=== PATIENT | male | born 1945 | race Caucasian/White ===

== ENCOUNTER 2017-05-31 04:03 | Inpatient (IN) | payer MEDICARE, OTHER ==
[~2017-05-31] VITALS: Ht 175.3 cm; Wt 73.9 kg
--- NOTE | 2017-05-31 04:34 | NUR ---
PT JUDITH FROM HOME FOR "FEVER X2 DAYS; [facility]" PT AOX3 RR EVEN AND UNLABORED. NO SOB NOTED. NAD NOTED. NO NVD AT THIS TIME. PT NOT DIAPHORETIC. PT GOWNED AND PLACED ON MONITOR. DR MOJICA AT BEDSIDE FOR EVAL. CAREGIVER AT BEDSIDE
[2017-05-31] MEDS ORDERED: PIPERACILLIN /TAZOBACTAM 3.375 G in IV D5W 50 ML IV ONE (05:00)
[2017-05-31] MEDS ORDERED: VANCOMYCIN 1 GM in IV D5W 250 ML IV ONE (05:00)
[2017-05-31] MEDS ORDERED: ACETAMINOPHEN ES 500 MG TABLET PO ONE (05:00)
[2017-05-31] MEDS ORDERED: IV NS 0.9% 1,000 ML BAG IV ONE ×2 (05:00→07:00)
[2017-05-31 05:05] LABS: BASOPHILS % (AUTO) 0.3 % (0.0-2.0); EOSINOPHILS % (AUTO) 1.9 % (0.0-6.0); HEMATOCRIT 31 % (39-51); HEMOGLOBIN 10.4 g/dL (13.5-17.5); LYMPHOCYTES # (AUTO) 0.3 /CMM (0.8-4.8); MEAN CORPUSCULAR HEMOGLOBIN 30 PG (26.0-33.0); MEAN CORPUSCULAR HGB CONC 34 g/dl (31.0-36.0); MEAN CORPUSCULAR VOLUME 89 fL (80-96); MONOCYTES # (AUTO) 0.1 /CMM (0.1-1.30); MONOCYTES % (AUTO) 6.9 % (2.0-12.0); NEUTROPHILS # (AUTO) 1.6 /CMM (1.8-8.9); NEUTROPHILS % (AUTO) 75.9 % (43.0-81.0); PLATELET COUNT (AUTO) 131 /CMM (150-450); RDW COEFFICIENT OF VARIATION 14.3 (11.5-15.0); RED BLOOD CELL COUNT(AUTO) 3.45 MIL/uL (4.5-6.0); WHITE BLOOD COUNT (AUTO) 2.1 K/uL (4.3-11.0)
[2017-05-31] MEDS ORDERED: ACETAMINOPHEN ES 500 MG TABLET ONE (05:08)
[2017-05-31 05:15] LABS: CALCIUM, SERUM 7.7 mg/dL (8.5-10.1); CARBON DIOXIDE 27 mmol/L (21-32); CHLORIDE 101 mmol/L (98-107); CREATININE 0.6 mg/dL (0.6-1.3); GLUCOSE 97 mg/dL (74-106); POTASSIUM 4.2 mmol/L (3.5-5.1); SODIUM SERUM 135 mmol/L (136-145); UREA NITROGEN, BLOOD 9 mg/dL (7-18)
[2017-05-31 05:19] LABS: INR 0.96 (0.87-1.13)
[2017-05-31] MEDS ORDERED: LIDOCAINE 2% JEL UROJET 10 ML MM ONE ×2 (05:25→05:30)
[2017-05-31 05:26] LABS: TROPONIN I < 0.017 ng/mL (0.00-0.056)
--- NOTE | 2017-05-31 05:26 | NUR ---
RADIOLOGY AT BEDSIDE FOR CXR
[2017-05-31 05:28] LABS: ALANINE AMINOTRANSFERASE 24 U/L (12-78); ALBUMIN 2.2 g/dL (3.4-5.0); ALKALINE PHOSPHATASE 165 U/L (46-116); ASPARTATE AMINOTRANSFERASE 58 U/L (15-37); B-TYPE NATRIURETIC PEPTIDE 395 PG/ML (0-125); BILIRUBIN,DIRECT 0.1 mg/dL (0.0-0.2); BILIRUBIN,TOTAL 0.3 mg/dL (0.2-1.0); TOTAL PROTEIN, SERUM 5.4 g/dL (6.4-8.2)
--- NOTE | 2017-05-31 05:34 | NUR ---
UNABLE TO COLLECT UA VIA STRAIGHT CATH. INFORMED DR. MOJICA
[2017-05-31] MEDS ORDERED: PIPERACILLIN /TAZOBACTAM 3.375 G VIAL IV ONE (05:35)
--- NOTE | 2017-05-31 05:52 | NUR ---
MAYBE 255
--- NOTE | 2017-05-31 05:56 | NUR ---
PER DR MOJICA TO IV BOLUS NS WITH PRESSURE BAGS AT THIS TIME.
[2017-05-31] MEDS ORDERED: VANCOMYCIN 1 GM VIAL ONE (06:13)
--- NOTE | 2017-05-31 06:31 | NUR ---
DR. SHUKLA AWARE PT CURRENT BP.
--- NOTE | 2017-05-31 06:50 | NUR ---
DR. MOJICA AT BEDSIDE FOR EVAL.
[2017-05-31] MEDS ORDERED: ACETAMINOPHEN 325 MG TABLET PO PRN (07:00)
[2017-05-31] MEDS ORDERED: MAGNESIUM HYDROXIDE 30 ML UDC PO PRN (07:00)
[2017-05-31] MEDS ORDERED: MAG HYDROX/AL HYDROX/SIMETH 30 ML UDC PO PRN (07:00)
[2017-05-31] MEDS ORDERED: ZOLPIDEM TARTRATE 5 MG TABLET PO PRN (07:00)
[2017-05-31] MEDS ORDERED: ONDANSETRON HCL/PF 4 MG/2 ML VIAL IVP PRN (07:00)
[2017-05-31] MEDS ORDERED: Z GUARD REMEDY 2 OZ OINT TP PRN (07:00)
[2017-05-31] MEDS ORDERED: HYDROCODONE/APAP 5/325MG 1 EACH TABLET ONE (07:01)
[2017-05-31] MEDS ORDERED: HYDROCODONE/APAP 5/325MG 1 EACH TABLET PO STA (07:02)
--- NOTE | 2017-05-31 07:10 | NUR ---
REPORT GIVEN TO EDUAR LOYA FOR DORENE.
--- NOTE | 2017-05-31 07:36 | NUR ---
LEONELA LYON (PRIMARY OPERATIONS SECTION MANAGER) [phone]
[2017-05-31 09:00] VITALS: BP 92/61
[2017-05-31] MEDS ORDERED: PANT40TA4 PO (09:25)
[2017-05-31] MEDS ORDERED: TOLT4CAP PO (09:25)
[2017-05-31] MEDS ORDERED: METO-358 PO (09:25)
[2017-05-31] MEDS ORDERED: ONDA4TAB5 PO (09:25)
[2017-05-31] MEDS ORDERED: MORP15TA7 PO (09:25)
[2017-05-31] MEDS ORDERED: GABA-534 PO (09:25)
[2017-05-31] MEDS ORDERED: FEE PK DOSING 1 MIN EA MC ONE (09:26)
[2017-05-31 09:30] VITALS: BP 92/61
[2017-05-31] MEDS: ENOXAPARIN SODIUM 40 MG/0.4 ML DISP.SYRIN SQ SCH (11:08)
[2017-05-31] MEDS: PIPERACILLIN /TAZOBACTAM 3.375 G in IV D5W 50 ML IV SCH ×2 (12:43→17:02)
[2017-05-31] MEDS ORDERED: MORPHINE SULFATE SR 15 MG TABLET.SA PO SCH (15:00)
[2017-05-31] MEDS: MORPHINE SULFATE INJ 4 MG/ML DISP.SYRIN IV PRN (15:47)
[2017-05-31 15:50] VITALS: BP 89/57
[2017-05-31 16:00] VITALS: BP 99/62
[2017-05-31] MEDS: GABAPENTIN 300 MG CAPSULE PO SCH (16:28)
[2017-05-31] MEDS: CARBAMAZEPINE 200 MG TABLET PO SCH (16:28)
[2017-05-31] MEDS: DILTIAZEM HCL CD 180 MG PO SCH (16:33)
[2017-05-31] MEDS: VANCOMYCIN 1 GM in IV D5W 250 ML IV SCH (17:57)
[2017-05-31 20:00] VITALS: BP 100/68
--- NOTE | 2017-05-31 20:00 | NUR ---
ms/rn opening notes PATIENT ALERT, ORIENTED X3, ABLE TO VERBALIZE NEEDS, IV SITE LEFT FOREARM LEAKING TO BE REMOVES, ATTEND TO NEEDS, AM RN ENDORSE DORENE. PATIENT ON PAIN MANAGEMENT, MORPHINE SULFATE IR 15 MG PO TO BE FIVEN AT 2100, , WITH IV ATN AT 0000. WILL KEEP SKIN INTACT AND DRY, OBSERVE REDNESS ON BUTTOCKS, WILL APPLY ZGUARD FOR SKIN PROTECTION, RESPIRATION EVEN AND UNLABORED WILL CONTINUE TO MONITOR.
[2017-05-31] MEDS: MORPHINE SULFATE IR 15 MG TABLET PO SCH (21:15)
[2017-05-31] MEDS: HYDROCODONE/APAP 5/325MG 1 EACH TABLET PO PRN (23:12)
--- NOTE | 2017-05-31 23:15 | NUR ---
MS/RN NOTES PATIENT LEFT FOREARM IV LEAKING REMOVE, INSERTED BY CHARGE NURSE ONE TIME BUT UNSUCESFULL WITH 1ST ATTEMP, WILL CALL ICU NURSE TO HAVE IT REINSERTED.
[2017-06-01] VITALS: BP 96/70
[2017-06-01] MEDS: PIPERACILLIN /TAZOBACTAM 3.375 G in IV D5W 50 ML IV SCH ×4 (00:34→17:14)
[2017-06-01 04:00] VITALS: BP 103/74
[2017-06-01] MEDS: MORPHINE SULFATE IR 15 MG TABLET PO SCH ×3 (04:59→20:35)
[2017-06-01] MEDS: VANCOMYCIN 1 GM in IV D5W 250 ML IV SCH ×2 (05:41→17:15)
[2017-06-01] MEDS: HYDROCODONE/APAP 5/325MG 1 EACH TABLET PO PRN (06:58)
--- NOTE | 2017-06-01 07:00 | NUR ---
MS/RN NOTES PATIENT REQUESTED FOR NORCO 5-325 MG PO, BEFORE BLOOD DRAW.WILL MONITOR EFFECTIVENESS.
--- NOTE | 2017-06-01 07:10 | NUR ---
REPORT RECEIVED AT THE BEDSIDE. PATIENT IS RESTING COMFORTABLY IN BED. NO SOB OR DISTRESS NOTED AT THIS TIME. PATIENT DENIES PAIN AT THIS TIME. HEART RATE AFIB AT 95 ON THE MONITOR. BED IN A LOW POSITION, CALL LIGHT WITHIN PATIENT REACH. WILL CONTINUE TO MONITOR.
--- NOTE | 2017-06-01 07:36 | NUR ---
MS/RN NOTES PATIENT IN BED, AWAKE, ALERT X3, ABLE TO VERBALIZE NEEDS, ON PAIN MANAGEMENT MONITORING RESPIRATIONS EVEN AND UNLABORED, PHOTO OF BUE DONE, COOPERATIVE TO CARE, LEFT HAND GAUGE 20 IV W/O INFILTRATION WILL CONTINUE TO MONITOR AND ENDORSE AM RN.
[2017-06-01 08:00] VITALS: BP 95/67
[2017-06-01 08:11] LABS: BASOPHILS % (AUTO) 0.2 % (0.0-2.0); EOSINOPHILS # (AUTO) 0.1 /CMM (0.0-0.7); EOSINOPHILS % (AUTO) 3.7 % (0.0-6.0); HEMATOCRIT 27 % (39-51); HEMOGLOBIN 9.2 g/dL (13.5-17.5); LYMPHOCYTES # (AUTO) 0.4 /CMM (0.8-4.8); LYMPHOCYTES % (AUTO) 30.7 % (20.0-44.0); MEAN CORPUSCULAR HEMOGLOBIN 30 PG (26.0-33.0); MEAN CORPUSCULAR HGB CONC 34 g/dl (31.0-36.0); MEAN CORPUSCULAR VOLUME 89 fL (80-96); MONOCYTES # (AUTO) 0.1 /CMM (0.1-1.30); MONOCYTES % (AUTO) 9.1 % (2.0-12.0); NEUTROPHILS # (AUTO) 0.8 /CMM (1.8-8.9); NEUTROPHILS % (AUTO) 56.3 % (43.0-81.0); PLATELET COUNT (AUTO) 93 /CMM (150-450); RDW COEFFICIENT OF VARIATION 14.6 (11.5-15.0); RED BLOOD CELL COUNT(AUTO) 3.05 MIL/uL (4.5-6.0)
[2017-06-01 08:31] LABS: WHITE BLOOD COUNT (AUTO) 1.4 K/uL (4.3-11.0)
[2017-06-01 08:35] LABS: CALCIUM, SERUM 7.4 mg/dL (8.5-10.1); CREATININE 0.4 mg/dL (0.6-1.3); MAGNESIUM 1.7 mg/dL (1.8-2.4); PHOSPHORUS 2.6 mg/dL (2.5-4.9); POTASSIUM 3.6 mmol/L (3.5-5.1)
[2017-06-01] MEDS: GABAPENTIN 300 MG CAPSULE PO SCH (08:37)
[2017-06-01] MEDS: CARBAMAZEPINE 200 MG TABLET PO SCH (08:37)
[2017-06-01] MEDS: ENOXAPARIN SODIUM 40 MG/0.4 ML DISP.SYRIN SQ SCH (08:39)
[2017-06-01 08:45] LABS: BAND % (MANUAL) 6 % (0.0-5.0); EOSINOPHILS % (MANUAL) 4 % (0-4); LYMPHOCYTES % (MANUAL) 32 % (16-48); MONOCYTES % (MANUAL) 9 % (0-11.0); NEUTROPHILS % (MANUAL) 49 (42-76)
--- NOTE | 2017-06-01 08:49 | NUR ---
INFORMED MD ABOUT WHITE BLOOD CELL COUNT OF 1.4. MD STATES HE WILL TAKE A LOOK AT THE PATIENT. NO NEW ORDERS.
[2017-06-01] MEDS: IV NS 0.9% 1,000 ML IV PRN (12:00)
[2017-06-01] MEDS: Magnesium 1GM/D5W 100ML PREMIX 100 ML IV SCH ×2 (12:54→14:08)
--- NOTE | 2017-06-01 13:24 | NUR ---
PT DECLINES 1300 DOSE OF MORPHINE HE STATES HE CURRENTLY HAS NO PAIN.
[2017-06-01 16:00] VITALS: BP 109/66
[2017-06-01] MEDS: DILTIAZEM HCL CD 180 MG PO SCH (16:50)
[2017-06-01] MEDS: MORPHINE SULFATE INJ 4 MG/ML DISP.SYRIN IV PRN (16:53)
[2017-06-01] MEDS: TBO-FILGRASTIM 480 MCG/0.8 ML ML SQ SCH (18:23)
--- NOTE | 2017-06-01 18:53 | NUR ---
ATTEMPTED TO CONTACT [facility] TO OBTAIN MEDICAL RECORDS. NO ANSWER AT [place]. PT STATES SHE WILL STOP BY TOMORROW TO OBTAIN THE RECORDS.
--- NOTE | 2017-06-01 19:30 | NUR ---
RN NOTES RECEIVED PATIENT IN BED AWAKE, AO X 3, [place], ABLE TO MAKE NEEDS KNOWN. NO ACUTE DISTRESS NOTED. MONITORED FOR PAIN. IV SITE PATENT, INTACT; FLUSHED. SAFETY REMINDERS GIVEN. ON LOW BED WITH BILATERAL UPPER SIDE RAILS UP. CALL BOWER WITHIN EASY REACH. WILL CONTINUE TO MONITOR.
[2017-06-01 20:00] VITALS: BP 116/72
[2017-06-02] MEDS: PIPERACILLIN /TAZOBACTAM 3.375 G in IV D5W 50 ML IV SCH ×4 (00:39→17:51)
[2017-06-02] MEDS: MORPHINE SULFATE IR 15 MG TABLET PO SCH ×4 (05:19→21:05)
--- NOTE | 2017-06-02 06:00 | NUR ---
RN NOTES PATIENT ASLEEP, AROUSABLE. RESPIRATIONS EVEN. NO SIGNS OF PAIN NOTED. NEEDS ATTENDED. KEPT CLEAN AND DRY. SAFETY PRECAUTIONS AND COMFORT MEASURES IN PLACE. WILL GIVE REPORT TO DAY SHIFT FOR CONTINUITY OF CARE.
[2017-06-02] MEDS: VANCOMYCIN 1 GM in IV D5W 250 ML IV SCH ×2 (06:41→19:07)
[2017-06-02 08:00] VITALS: BP 100/64
--- NOTE | 2017-06-02 08:00 | NUR ---
ms rn ms rn received on bed, awake,alert,oriented x3,hard of hearing,not in distress, respirations even and unlabored,no sob noted.
[2017-06-02 08:04] LABS: CALCIUM, SERUM 7.6 mg/dL (8.5-10.1); CREATININE 0.5 mg/dL (0.6-1.3); POTASSIUM 3.6 mmol/L (3.5-5.1)
[2017-06-02 08:18] LABS: THYROID STIMULATING HORMONE 1.178 uIU/mL (0.358-3.74)
[2017-06-02] MEDS: GABAPENTIN 300 MG CAPSULE PO SCH (09:17)
[2017-06-02] MEDS: CARBAMAZEPINE 200 MG TABLET PO SCH (09:17)
[2017-06-02] MEDS: MORPHINE SULFATE INJ 4 MG/ML DISP.SYRIN IV PRN ×4 (09:17→23:28)
[2017-06-02] MEDS: ENOXAPARIN SODIUM 40 MG/0.4 ML DISP.SYRIN SQ SCH (09:25)
--- NOTE | 2017-06-02 09:30 | NUR ---
ms boateng breakfast served,due meds given, tolerated well.
[2017-06-02] MEDS: IV NS 0.9% 1,000 ML IV PRN (10:59)
[2017-06-02 12:00] VITALS: BP 126/81
[2017-06-02 12:27] LABS: BASOPHILS % (AUTO) 0.1 % (0.0-2.0); EOSINOPHILS # (AUTO) 0.1 /CMM (0.0-0.7); EOSINOPHILS % (AUTO) 1.8 % (0.0-6.0); HEMATOCRIT 28 % (39-51); HEMOGLOBIN 9.5 g/dL (13.5-17.5); LYMPHOCYTES # (AUTO) 0.5 /CMM (0.8-4.8); LYMPHOCYTES % (AUTO) 9.8 % (20.0-44.0); MEAN CORPUSCULAR HEMOGLOBIN 30 PG (26.0-33.0); MEAN CORPUSCULAR HGB CONC 34 g/dl (31.0-36.0); MEAN CORPUSCULAR VOLUME 89 fL (80-96); MONOCYTES # (AUTO) 0.1 /CMM (0.1-1.30); MONOCYTES % (AUTO) 1.9 % (2.0-12.0); NEUTROPHILS # (AUTO) 4.4 /CMM (1.8-8.9); NEUTROPHILS % (AUTO) 86.4 % (43.0-81.0); PLATELET COUNT (AUTO) 108 /CMM (150-450); RDW COEFFICIENT OF VARIATION 14.4 (11.5-15.0); RED BLOOD CELL COUNT(AUTO) 3.15 MIL/uL (4.5-6.0); WHITE BLOOD COUNT (AUTO) 5.1 K/uL (4.3-11.0)
[2017-06-02] MEDS: DILTIAZEM HCL CD 180 MG PO SCH (17:00)
[2017-06-02] MEDS: TBO-FILGRASTIM 480 MCG/0.8 ML ML SQ SCH (17:52)
--- NOTE | 2017-06-02 18:00 | NUR ---
MS RN WAS SEEN BY DR. ORTA, AWAITING FOR ORDERS.
[2017-06-02 20:48] VITALS: BP 106/76
[2017-06-03] MEDS: PIPERACILLIN /TAZOBACTAM 3.375 G in IV D5W 50 ML IV SCH ×4 (00:08→19:40)
[2017-06-03] MEDS: IV NS 0.9% 1,000 ML IV PRN ×2 (01:15→20:32)
[2017-06-03] MEDS: VANCOMYCIN 1 GM in IV D5W 250 ML IV SCH ×2 (01:16→09:30)
[2017-06-03] MEDS: MORPHINE SULFATE IR 15 MG TABLET PO SCH ×3 (05:38→21:28)
[2017-06-03 07:08] LABS: CALCIUM, SERUM 7.9 mg/dL (8.5-10.1); CREATININE 0.5 mg/dL (0.6-1.3); POTASSIUM 4.2 mmol/L (3.5-5.1)
--- NOTE | 2017-06-03 07:30 | NUR ---
PT RECEIVED RESTING COMFORTABLY IN BED. NO S/S OR C/O PAIN OR DISTRESS NOTED. SIDE RAILS UP X2, CALL LIGHT LEFT WITHIN REACH. WILL CONTINUE PLAN OF CARE.
[2017-06-03 08:00] VITALS: BP 112/55
[2017-06-03] MEDS: CARBAMAZEPINE 200 MG TABLET PO SCH (08:47)
[2017-06-03] MEDS: GABAPENTIN 300 MG CAPSULE PO SCH (08:48)
[2017-06-03] MEDS: ENOXAPARIN SODIUM 40 MG/0.4 ML DISP.SYRIN SQ SCH (08:49)
[2017-06-03 15:59] LABS: EOSINOPHILS # (AUTO) 0.1 /CMM (0.0-0.7); EOSINOPHILS % (AUTO) 1.6 % (0.0-6.0); HEMATOCRIT 31 % (39-51); HEMOGLOBIN 10.3 g/dL (13.5-17.5); LYMPHOCYTES # (AUTO) 0.7 /CMM (0.8-4.8); LYMPHOCYTES % (AUTO) 9.3 % (20.0-44.0); MEAN CORPUSCULAR HEMOGLOBIN 30 PG (26.0-33.0); MEAN CORPUSCULAR HGB CONC 34 g/dl (31.0-36.0); MEAN CORPUSCULAR VOLUME 90 fL (80-96); MONOCYTES # (AUTO) 0.1 /CMM (0.1-1.30); MONOCYTES % (AUTO) 1.5 % (2.0-12.0); NEUTROPHILS # (AUTO) 6.4 /CMM (1.8-8.9); NEUTROPHILS % (AUTO) 87.6 % (43.0-81.0); PLATELET COUNT (AUTO) 101 /CMM (150-450); RDW COEFFICIENT OF VARIATION 14.8 (11.5-15.0); RED BLOOD CELL COUNT(AUTO) 3.42 MIL/uL (4.5-6.0); WHITE BLOOD COUNT (AUTO) 7.3 K/uL (4.3-11.0)
[2017-06-03 16:00] VITALS: BP 111/78
[2017-06-03 17:27] LABS: BAND % (MANUAL) 11 % (0.0-5.0); MONOCYTES % (MANUAL) 4 % (0-11.0); NEUTROPHILS % (MANUAL) 85 (42-76)
[2017-06-03] MEDS: DILTIAZEM HCL CD 180 MG PO SCH (17:58)
--- NOTE | 2017-06-03 18:24 | NUR ---
CHANGE OF SHIFT REPORT PT RESTING COMFORTABLY IN BED. NO S/S OR C/O PAIN OR DISTRESS NOTED. SIDE RAILS UP X2. CALL LIGHT LEFT WITHIN REACH. PT KEPT CLEAN, DRY, AND COMFORTABLE. NO SIGNIFICANT CHANGES SINCE PREVIOUS SHIFT. WILL GIVE REPORT TO DILIP WITT.
--- NOTE | 2017-06-03 19:30 | NUR ---
MS RN OPENING NOTES RECEIVED PATIENT IN BED AWAKE, A & O X 3, HOB ELEVATED, ABLE TO MAKE NEEDS KNOWN. NO ACUTE DISTRESS OR PAIN NOTED @ THIS TIME. IV SITE TO LEFT HAND, PATENT, INTACT RUNNING WITH IVF NS @ 75 ML/HR. . SAFETY REMINDERS GIVEN. ON LOW LOCKED BED WITH BILATERAL UPPER SIDE RAILS UP. CALL BOWER WITHIN EASY REACH. WILL CONTINUE TO MONITOR.
[2017-06-03 20:00] VITALS: BP 102/75
--- NOTE | 2017-06-03 20:30 | NUR ---
MS RN NOTES RECEIVED ON BED SLEEPING,AROUSABLE TO VERBAL STIMULI,BREATHING REGULAR,NOT IN ANY FORM OF DISTRESS.IVF NS AT 75ML/HR RATE IN PROGRESS.INCONTINENT OF URINE,CALL LIGHT IN REACH,NEEDS ANTICIPATED.
[2017-06-04] MEDS: PIPERACILLIN /TAZOBACTAM 3.375 G in IV D5W 50 ML IV SCH ×3 (00:03→12:17)
[2017-06-04] MEDS: MORPHINE SULFATE IR 15 MG TABLET PO SCH ×2 (05:06→13:16)
--- NOTE | 2017-06-04 06:35 | NUR ---
MS RN NOTES NO SIGNIFICANT CHANGE IN STATUS.MORPHINE 15MG PO EFFECTIVE FOR PAIN MANAGEMENT.POSSIBLE D/C THIS WEEK END TO HOME WITH HOME HEALTH.CALL LIGHT IN REACH,NEEDS ATTENDED.
[2017-06-04 06:47] LABS: CALCIUM, SERUM 7.8 mg/dL (8.5-10.1); CREATININE 0.6 mg/dL (0.6-1.3); POTASSIUM 3.3 mmol/L (3.5-5.1)
--- NOTE | 2017-06-04 07:30 | NUR ---
RECEIVED PT. IN AM,ALERT AND ORIENTED X3.SLUGGISH AT TIMES.
[2017-06-04 08:00] VITALS: BP 104/78
[2017-06-04] MEDS ORDERED: VANCOMYCIN 1 GM in IV D5W 250 ML IV SCH (09:00)
[2017-06-04] MEDS: GABAPENTIN 300 MG CAPSULE PO SCH (09:35)
[2017-06-04] MEDS: CARBAMAZEPINE 200 MG TABLET PO SCH (09:36)
[2017-06-04] MEDS: ENOXAPARIN SODIUM 40 MG/0.4 ML DISP.SYRIN SQ SCH (09:36)
--- NOTE | 2017-06-04 10:30 | NUR ---
CAREGIVER IN TO VISIT.
--- NOTE | 2017-06-04 11:23 | NUR ---
DISCH. ORDER GIVEN.
[2017-06-04] MEDS ORDERED: POTASSIUM CHLORIDE 20 MEQ TAB.PRT.SR PO ONE (12:00)
--- NOTE | 2017-06-04 16:00 | NUR ---
DC PAPERS SIGNED.HEP LOCK OUT.BELONGING SHEET SIGNED.
[2017-06-04] MEDS: DILTIAZEM HCL CD 180 MG PO SCH (17:00)
--- NOTE | 2017-06-04 17:00 | NUR ---
REFUSED DISCHARGE PHOTOS,PT. QUESTIONED 2X.
[2017-06-04 17:20] VITALS: BP 96/69
--- NOTE | 2017-06-04 17:30 | NUR ---
AMBULANCE HERE.DIRECTOR OF SEARCH ENGINE OPTIMIZATION GIVEN REPORT TAKEN VIA AMBULANCE TO [facility]. CAREGIVER HAS RXS WITH EXPLANATION.
[2017-06-06 15:11] LABS: *SPE ALBUMIN 2.1 g/dL (2.9-4.4); *SPE ALPHA-1-GLOBULIN 0.3 g/dL (0.0-0.4); *SPE ALPHA-2-GLOBULIN 0.9 g/dL (0.4-1.0); *SPE BETA GLOBULIN 0.6 g/dL (0.7-1.3); *SPE GLOBULIN, TOTAL 2.1 g/dL (2.2-3.9); *SPE M-SPIKE Not Observed g/dL (Not Observed); *SPEGAMMA GLOBULIN 0.4 g/dL (0.4-1.8)
== END 2017-06-04 18:09 | disposition home health service (06) | DRG 871 ==
LOC: ER 04:04 → TELE 05:43 → MED 22:42
PROVIDERS: ADMIT Internal Medicine; ATTEND Internal Medicine
DX: A41.9 Sepsis, unspecified organism (principal); J18.9 Pneumonia, unspecified organism; G93.41 Metabolic encephalopathy; D61.818 Other pancytopenia; I11.0 Hypertensive heart disease with heart failure; K52.0 Gastroenteritis and colitis due to radiation; E88.09 Other disorders of plasma-protein metabolism, not elsewhere classified; I50.32 Chronic diastolic (congestive) heart failure; I48.91 Unspecified atrial fibrillation; C61 Malignant neoplasm of prostate; D63.8 Anemia in other chronic diseases classified elsewhere; E87.1 Hypo-osmolality and hyponatremia; Z86.73 Personal history of transient ischemic attack (TIA), and cerebral infarction without residual deficits; Z92.3 Personal history of irradiation; Z85.830 Personal history of malignant neoplasm of bone; Y84.2 Radiological procedure and radiotherapy as the cause of abnormal reaction of the patient, or of later complication, without mention of misadventure at the time of the procedure; R09.02 Hypoxemia
CPT/HCPCS: 36415; 71045-TC; 80048-TC; 80076-TC; 80202-TC; 82728-TC; 82746; 83540-TC; 83605-TC; 83735-TC; 83880; 84100-TC; 84155; 84165; 84443-TC; 84484-TC; 85025-TC; 85730-TC; 87040-TC; 87081-TC; A4606; J1447; J1650; J2270; J2543; J3370; J3475; J3490; J7030; J7040; J7060; Z7610

== ENCOUNTER 2017-06-15 11:06 | Inpatient (IN) | payer MEDICARE, OTHER ==
[~2017-06-15] VITALS: Ht 185.4 cm; Wt 72.6 kg
[~2017-06-15 11:06] MED LIST: GABA-534 PO; METO-358 PO; MORP15TA7 PO; ONDA4TAB5 PO; PANT40TA4 PO; TOLT4CAP PO
--- NOTE | 2017-06-15 11:15 | NUR ---
AAOX3, [id number] FROM HOME: LEFT ELBOW POSSIBLE WOUND INFECTION AND PAIN. RR IS EVEN AND UNLABORED WITH NAD NOTED. SKIN IS WARM AND DRY. AWAITING MD FOR EVAL.
[2017-06-15] MEDS ORDERED: IV NS 0.9% 1,000 ML BAG IV ONE (11:30)
[2017-06-15] MEDS ORDERED: VANCOMYCIN 1 GM in IV D5W 250 ML IV ONE (11:30)
[2017-06-15 11:44] LABS: BASOPHILS # (AUTO) 0.1 /CMM (0.0-0.2); BASOPHILS % (AUTO) 2.1 % (0.0-2.0); EOSINOPHILS # (AUTO) 0.1 /CMM (0.0-0.7); EOSINOPHILS % (AUTO) 1.5 % (0.0-6.0); HEMATOCRIT 28 % (39-51); HEMOGLOBIN 9.5 g/dL (13.5-17.5); LYMPHOCYTES # (AUTO) 0.7 /CMM (0.8-4.8); MEAN CORPUSCULAR HEMOGLOBIN 29 PG (26.0-33.0); MEAN CORPUSCULAR HGB CONC 34 g/dl (31.0-36.0); MEAN CORPUSCULAR VOLUME 88 fL (80-96); MONOCYTES # (AUTO) 0.3 /CMM (0.1-1.30); MONOCYTES % (AUTO) 7.5 % (2.0-12.0); NEUTROPHILS # (AUTO) 2.2 /CMM (1.8-8.9); NEUTROPHILS % (AUTO) 67.9 % (43.0-81.0); PLATELET COUNT (AUTO) 142 /CMM (150-450); RDW COEFFICIENT OF VARIATION 13.8 (11.5-15.0); RED BLOOD CELL COUNT(AUTO) 3.23 MIL/uL (4.5-6.0); WHITE BLOOD COUNT (AUTO) 3.5 K/uL (4.3-11.0)
[2017-06-15 11:54] LABS: CALCIUM, SERUM 8.1 mg/dL (8.5-10.1); CARBON DIOXIDE 27 mmol/L (21-32); CHLORIDE 105 mmol/L (98-107); CREATININE 0.6 mg/dL (0.6-1.3); GLUCOSE 103 mg/dL (74-106); POTASSIUM 4.6 mmol/L (3.5-5.1); SODIUM SERUM 137 mmol/L (136-145); UREA NITROGEN, BLOOD 10 mg/dL (7-18)
[2017-06-15 11:57] LABS: INR 0.95 (0.85-1.15)
[2017-06-15 11:59] LABS: ALANINE AMINOTRANSFERASE 26 U/L (12-78); ALBUMIN 2.1 g/dL (3.4-5.0); ALKALINE PHOSPHATASE 253 U/L (46-116); ASPARTATE AMINOTRANSFERASE 51 U/L (15-37); BILIRUBIN,DIRECT 0.1 mg/dL (0.0-0.2); BILIRUBIN,TOTAL 0.2 mg/dL (0.2-1.0); TOTAL PROTEIN, SERUM 5.3 g/dL (6.4-8.2)
[2017-06-15 12:01] LABS: TROPONIN I < 0.017 ng/mL (0.00-0.056)
--- NOTE | 2017-06-15 12:06 | NUR ---
DR.RUTHERFORD ELI GRANULATING BLENDER
--- NOTE | 2017-06-15 12:27 | NUR ---
REPORT GIVEN TO EDUAR CRISTOBAL FOR DORENE MS [id number]
--- NOTE | 2017-06-15 12:46 | NUR ---
MS/MANAGER APPLIED PATIENT ADMITTED FROM ER IN STABLE CONDITION TRANSFER VIA GURNEY. A/O X 4. NO SIGNS OF ACUTE DISTRESS. NO COMPLAIN OF PAIN OR DISCOMFORT. CONTINENT OF BOWEL AND BLADDER. LEFT AC GZ 22 IV SITE INTACT AND FLOWING WELL. NO S/S OF REDNESS OR INFILTRATION NOTED. ADMITTED FOR LEFT ELBOW WOUND CELLULITIS. ALL NEEDS ATTENDED TO. CALL LIGHT WITHIN REACH. WILL CONTINUE TO MONITOR TO ENSURE SAFETY.
[2017-06-15 13:00] VITALS: BP 93/68
[2017-06-15] MEDS ORDERED: Z GUARD REMEDY 2 OZ OINT TP PRN (13:00)
[2017-06-15] MEDS ORDERED: ONDANSETRON HCL/PF 4 MG/2 ML VIAL IVP PRN (13:00)
[2017-06-15] MEDS ORDERED: HYDROCODONE/APAP 5/325MG 1 EACH TABLET PO PRN (13:00)
[2017-06-15] MEDS ORDERED: MAGNESIUM HYDROXIDE 30 ML UDC PO PRN (13:00)
[2017-06-15] MEDS ORDERED: ACETAMINOPHEN 325 MG TABLET PO PRN (13:00)
[2017-06-15] MEDS ORDERED: MAG HYDROX/AL HYDROX/SIMETH 30 ML UDC PO PRN (13:00)
[2017-06-15] MEDS ORDERED: ZOLPIDEM TARTRATE 5 MG TABLET PO PRN (13:00)
[2017-06-15] MEDS ORDERED: FEE PK DOSING 1 MIN EA MC ONE (13:26)
[2017-06-15] MEDS ORDERED: ONDANSETRON 4 MG TAB.RAPDIS PO PRN (13:30)
[2017-06-15] MEDS ORDERED: DILT180C66 PO (13:34)
[2017-06-15] MEDS ORDERED: ASPI-1169 PO (13:34)
[2017-06-15] MEDS ORDERED: SENN-167 PO (13:34)
[2017-06-15] MEDS ORDERED: MORP10SO2 PO (13:34)
[2017-06-15] MEDS ORDERED: CARB200T PO (13:34)
[2017-06-15 16:00] VITALS: BP 99/68
[2017-06-15] MEDS: TOLTERODINE 2 MG CAP.SR PO SCH (16:38)
[2017-06-15 16:44] VITALS: BP 93/68
[2017-06-15] MEDS ORDERED: MORPHINE SULFATE 5 MG PO PRN (18:00)
[2017-06-15] MEDS: DILTIAZEM HCL CD 180 MG PO SCH (18:00)
[2017-06-15] MEDS: SENNOSIDES 8.6 MG TABLET PO SCH (18:10)
--- NOTE | 2017-06-15 18:23 | NUR ---
MS/RN CLOSING NOTE PATIENT IN BED IN STABLE CONDITION. A/O X 3. NO SIGNS OF ACUTE DISTRESS. NO COMPLAIN OF PAIN OR DISCOMFORT. ALL NEEDS ATTENDED TO. CALL LIGHT WITHIN REACH. WILL ENDORSE TO NEXT SHIFT FOR CONTINUITY OF CARE.
--- NOTE | 2017-06-15 19:41 | NUR ---
MS IRS AGENT INITIAL NOTES RECEIVED REPORT FROM AM NURSE AND CHECKED THE PT , HE'S RESTING AT THIS TIME BUT AROUSE TO TOUCH, DENIES ANY PAIN OR ANY DISCOMFORT AT THIS TIME. NOT IN ANY ACUTE DISTRESS NOTED. SKIN WARM AND DRY TO TOUCH , CELLULITIS ON HIS LEFT ELBOW AND SCAB , DISCOLORATION ON HIS LEFT HAND, PT AWARE HOW TO USED THE CALL LIGHT SYSTEM AND ENCOURAGE HIM TO USE IT IF HE NEEDS SOME HELP OR NURSE. KEPT HIM WARM AND COMFORTABLE AT ALL TIMES. SAFETY PRECAUTION APPLIED AND PLACE CALL LIGHT AT REACH. WILL CONTINUE TO MONITOR.
[2017-06-15 19:45] VITALS: BP 93/51
[2017-06-15 20:00] VITALS: BP 93/51
[2017-06-15] MEDS: ENOXAPARIN SODIUM 40 MG/0.4 ML DISP.SYRIN SQ SCH (21:38)
[2017-06-15] MEDS: METOPROLOL SUCCINATE 50 MG TAB.SR.24H PO SCH (22:08)
[2017-06-15] MEDS: GABAPENTIN 300 MG CAPSULE PO SCH (22:08)
[2017-06-16] MEDS: VANCOMYCIN 1 GM in IV D5W 250 ML IV SCH ×2 (00:55→13:01)
--- NOTE | 2017-06-16 01:00 | NUR ---
MS LYNNE NOTES PT SLEEPING AND VANCOMYCIN INFUSING AT THIS TIME. NO SIGNS OF ANY ACUTE DISTRESS NOTED. KEPT HIM WARM AND COMFORTABLE AT ALL TIMES. WILL CONTINUE TO MONITOR. PLACE CALL LIGHT AT REACH.
[2017-06-16 04:00] VITALS: BP 116/62
[2017-06-16 06:29] LABS: BASOPHILS % (AUTO) 0.7 % (0.0-2.0); EOSINOPHILS % (AUTO) 1.3 % (0.0-6.0); HEMATOCRIT 27 % (39-51); HEMOGLOBIN 9.2 g/dL (13.5-17.5); LYMPHOCYTES # (AUTO) 0.6 /CMM (0.8-4.8); MEAN CORPUSCULAR HEMOGLOBIN 30 PG (26.0-33.0); MEAN CORPUSCULAR HGB CONC 34 g/dl (31.0-36.0); MEAN CORPUSCULAR VOLUME 89 fL (80-96); MONOCYTES # (AUTO) 0.2 /CMM (0.1-1.30); MONOCYTES % (AUTO) 7.3 % (2.0-12.0); NEUTROPHILS % (AUTO) 68.7 % (43.0-81.0); PLATELET COUNT (AUTO) 123 /CMM (150-450); RED BLOOD CELL COUNT(AUTO) 3.06 MIL/uL (4.5-6.0); WHITE BLOOD COUNT (AUTO) 2.9 K/uL (4.3-11.0)
[2017-06-16 07:15] LABS: CALCIUM, SERUM 8.1 mg/dL (8.5-10.1); CREATININE 0.6 mg/dL (0.6-1.3); MAGNESIUM 1.6 mg/dL (1.8-2.4); POTASSIUM 4.4 mmol/L (3.5-5.1)
--- NOTE | 2017-06-16 07:30 | NUR ---
MS DELICATESSEN DEPARTMENT MANAGER CLOSING NOTES PT AWAKE AND ALERT WATCHING TV AT THIS TIME. DENIES ANY PAIN OR ANY DISCOMFORT. SPOKE TO HIM THAT IF WE CAN DO MORNING CARE ON HIM AT THE SAME TIME CHANGING HIS LINEN FOR HIS COMFORT. PT STATED "NO I WANT TO REST MORE AND I FEEL COLD ". WE TOLD HIM WE USED THE WARM WATER TO MADE HIM FEEL FRESH BUT STILL REFUSING AND SAYING JUST COVERED ME AGAIN WITH ANOTHER BLANKET. COVERED HIM AND PT STATED "THANK YOU ".ALL DUE MEDS GIVEN AND STABLE CHUCHO THE NIGHT. KEPT HIM WARM AND COMFORTABLE AT ALL TIMES. PLACE CALL LIGHT AT REACH. ENDORSE TO AM NURSE.
--- NOTE | 2017-06-16 07:33 | NUR ---
MS RN OPENING NOTES RECEIVED PT ASLEEP IN BED, EASILY AWAKENS. A/O X4, SAME ABLE TO MAKE NEEDS KNOWN, DENIES PAIN OR DISCOMFORTS AT THIS TIME. ON ROOM AIR, BREATHING EVEN AND UNLABORED. IV ACCES ON LEFT AC INTACT AND PATENT. BED IS IN LOW AND LOCKED POSITION, CALL LIGHT WITHIN REACH. WILL CONTINUE TO MONITOR PT ACCORDINGLY
[2017-06-16 08:00] VITALS: BP 134/65
[2017-06-16] MEDS: PANTOPRAZOLE 40 MG TABLET.DR PO SCH (08:24)
[2017-06-16] MEDS: ASPIRIN 81 MG TAB.CHEW PO SCH (08:25)
[2017-06-16] MEDS: CARBAMAZEPINE 200 MG TABLET PO SCH (08:25)
[2017-06-16] MEDS: TOLTERODINE 2 MG CAP.SR PO SCH (08:25)
[2017-06-16] MEDS: DILTIAZEM HCL CD 180 MG PO SCH (08:26)
[2017-06-16] MEDS: Magnesium 1GM/D5W 100ML PREMIX 100 ML IV SCH ×2 (12:03→14:50)
[2017-06-16] MEDS: MORPHINE SULFATE SR 15 MG TABLET.SA PO PRN ×2 (14:57→19:31)
[2017-06-16 16:00] VITALS: BP 99/74
[2017-06-16] MEDS: SENNOSIDES 8.6 MG TABLET PO SCH (17:42)
--- NOTE | 2017-06-16 18:33 | NUR ---
MS RN CLOSING NOTES PATIENT AWAKE IN BED WATCHING TV AT THIS TIME. HOB ELEVATED. A/O X4, SAME VERBALLY RESPONSIVE. LEFT ELBOW REMAINS RED AND SLIGHTLY SWOLLEN. ON ROOM AIR, BREATHING EVEN AND UNLABORED, NO SOB NOTED. IV ACCESS ON LEFT AC INTACT AND PATENT, FLUSHES WELL. KEPT BED IN LOW AND LOCKED POSITION, CALL LIGHT WITHIN REACH. ALL SAFETY MEASURES MAINTAINED. ALL NEEDS AND CARE PROVIDED WELL. WILL ENDORSED TO [place] FINISH SPRAYER NURSE FOR DORENE.
--- NOTE | 2017-06-16 19:30 | NUR ---
MS RN INITIAL NOTES RECEIVED PT LAYING IN BED WITH HOB ELEVATED. A/O X4, RESPIRATIONS ARE EVEN AND UNLABORED, NOT IN ANY ACUTE DISTRESS NOTED. IV TO LAC INTACT, PATENT. DRESSING KEPT CLEAN AND DRY. C/O PAIN 11/29 TO LEFT ELBOW. WILL ADMINISTER PRN PAIN MEDICATION AND MONITOR EFFECTIVENESS. ENCOURAGED PT TO ELEVATED LEFT ARM TO DECREASE SWELLING. REMINDED PT TO USE CALL LIGHT WHEN ASSISTANCE IS NEEDED, CALL LIGHT IS LEFT WITHIN REACH. WILL CONTINUE TO MONITOR THROUGHOUT SHIFT.
--- NOTE | 2017-06-16 19:40 | NUR ---
RN NOTES ADMINISTERED PRN PAIN MEDICATION FOR PL 11/29 TO LEFT ELBOW D/T OSTEOMYELITIS. WILL CONTINUE TO MONITOR FOR EFFECTIVE AND THROUGHOUT SHIFT.
[2017-06-16 20:00] VITALS: BP_SYST 105; BP_SYST 130; BP_DIAS 61; BP_DIAS 84
[2017-06-16] MEDS: GABAPENTIN 300 MG CAPSULE PO SCH (21:02)
[2017-06-16] MEDS: ENOXAPARIN SODIUM 40 MG/0.4 ML DISP.SYRIN SQ SCH (21:02)
[2017-06-16] MEDS: METOPROLOL SUCCINATE 50 MG TAB.SR.24H PO SCH (21:11)
[2017-06-17] MEDS: VANCOMYCIN 1 GM in IV D5W 250 ML IV SCH ×2 (00:18→12:17)
--- NOTE | 2017-06-17 06:33 | NUR ---
RN Closing Notes All due meds given, needs met and anticipated. Remains a/ox4, respirations are even and unlabored, not in any acute distress noted. 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 Denies any pain at this time. IV to LAC intact and patent. Dressing kept clean and dry. Reminded pt to use call light when assistance is needed, call light left within reach. Repositioned pt q2h to prevent further skin injuries and for comfort. Left elbow and bilateral heels are offloaded. Will endorse to next shift for continuity of care.
--- NOTE | 2017-06-17 07:32 | NUR ---
MS RN OPENING NOTES PATIENT RECEIVED AWAKE AND LYING @ MODERATE HIGH BACKREST POSITION, NO ACUTE SIGNS OF DISTRESS NOTED. A/O X4. VERBALLY RESPONSIVE WITH NO C/O PAIN OR DISCOMFORTS AT THIS TIME. ON ROOM AIR, BREATHING EVEN AND UNLABORED. IV ACCES ON LEFT AC INTACT AND PATENT, EASILY TO FLUSH. BED IS IN LOW AND LOCKED POSITION, CALL LIGHT WITHIN REACH. WILL CONTINUE TO MONITOR PT ACCORDINGLY
[2017-06-17 08:00] VITALS: BP 108/73
--- NOTE | 2017-06-17 08:04 | NUR ---
WOUND CARE CONSULT WOUND CARE RECEIVED CONSULT. WOUND CARE WILL DEFER CONSULT AND TREATMENT PLANS TO SURGICAL TEAM WHO ARE FOLLOWING. ALL PRESSURE ULCER PREVENTION MEASURES NOTED TO BE IN PLACE. PATIENT WITH MINDY AT 17.
[2017-06-17 08:17] VITALS: BP 108/73
[2017-06-17] MEDS: DILTIAZEM HCL CD 180 MG PO SCH (08:17)
[2017-06-17] MEDS: ASPIRIN 81 MG TAB.CHEW PO SCH (08:17)
[2017-06-17] MEDS: PANTOPRAZOLE 40 MG TABLET.DR PO SCH (08:17)
[2017-06-17] MEDS: TOLTERODINE 2 MG CAP.SR PO SCH (08:18)
[2017-06-17] MEDS: CARBAMAZEPINE 200 MG TABLET PO SCH (08:18)
[2017-06-17] MEDS ORDERED: SULF1TAB48 PO (10:29)
[2017-06-17] MEDS: MORPHINE SULFATE SR 15 MG TABLET.SA PO PRN (13:18)
--- NOTE | 2017-06-17 13:19 | NUR ---
RN NOTES PATIENT REFUSED BLOOD WORKS TODAY DESPITE ENCOURAGEMENT AND EXPLAINING THE BENEFITS OF HAVING MG AND BMP CHECKED. WILL CONTINUE TO MONITOR
--- NOTE | 2017-06-17 14:29 | NUR ---
RN NOTES PATIENT FINALLY AGREED TO HAVE BLOOD TEST BMP DONE. WILL CONTINUE TO MONITOR.
[2017-06-17 14:49] LABS: CALCIUM, SERUM 7.5 mg/dL (8.5-10.1); CREATININE 0.6 mg/dL (0.6-1.3); POTASSIUM 4.6 mmol/L (3.5-5.1)
--- NOTE | 2017-06-17 17:49 | NUR ---
RN DISCHARGED NOTES PATIENT DISCHARGED HOME IN STABLE CONDITION. A/O X 4, SAME VERBALLY RESPONSIVE. ON ROOM AIR , BREATHING EVEN WITH NO SOB NOTED DURING DISCHARGE. V/S TAKEN AND RECORDED. PHOTOS OF SKIN TAKEN AND FILED ON CHART. ALL BELEONGINS ACCOUNTED FOR AND SIGNED FORM. HEALTH TEACHINGS GIVEN AND EXIT CARE REVIEWED WITH PT AND PRIMARY CAREGIVER( GLORY LLAMAS), BOTH VERBALIZED UNDERSTANDING. PT LEFT UNIT AT 1750 VIA LORIN ACCOMPANIED BY 2EMT'S AND CAREGIVER. MD AND CHARGE NURSE AWARE OF DISCHARGE. Addendum: 06/17/17 at 1754 by JAVIER MORGAN RN CORRECTION: PT LEFT UNIT VIA LORIN AT 1747H.
== END 2017-06-17 17:50 | disposition home or self-care (01) | DRG 602 ==
LOC: ER 11:07 → MED 12:17
PROVIDERS: ADMIT Internal Medicine; ATTEND Internal Medicine
DX: L03.114 Cellulitis of left upper limb (principal); G92 Toxic encephalopathy; E43 Unspecified severe protein-calorie malnutrition; D61.818 Other pancytopenia; C77.9 Secondary and unspecified malignant neoplasm of lymph node, unspecified; C79.51 Secondary malignant neoplasm of bone; G62.9 Polyneuropathy, unspecified; I11.0 Hypertensive heart disease with heart failure; I50.9 Heart failure, unspecified; I48.91 Unspecified atrial fibrillation; D63.8 Anemia in other chronic diseases classified elsewhere; C61 Malignant neoplasm of prostate; Z86.73 Personal history of transient ischemic attack (TIA), and cerebral infarction without residual deficits; Z74.01 Bed confinement status; Z79.899 Other long term (current) drug therapy; Z79.82 Long term (current) use of aspirin; Z92.21 Personal history of antineoplastic chemotherapy; Z92.3 Personal history of irradiation; G89.29 Other chronic pain; Z66 Do not resuscitate; L89.020 Pressure ulcer of left elbow, unstageable; L98.9 Disorder of the skin and subcutaneous tissue, unspecified; R23.3 Spontaneous ecchymoses
CPT/HCPCS: 36415; 71045-TC; 73080-TC; 80048-TC; 80076-TC; 80202-TC; 83605-TC; 83735-TC; 84100-TC; 84484-TC; 85025-TC; 85652-TC; 85730-TC; 87040-TC; 87081-TC; A4606; J1650; J3370; J3475; J7030; J7050; J7060; Z7610